=== PATIENT | male | born 2000 | race Two or more races ===

== ENCOUNTER 2021-09-11 09:55 | Emergency (ER) | payer OTHER ==
[~2021-09-11] VITALS: Ht 180.3 cm; Wt 81.6 kg
[2021-09-11 10:08] VITALS: BP 128/76
[2021-09-11] MEDS ORDERED: TDAP [DIPH/PERTUSSIS/TET] 0.5 ML VIAL IM ONE ×2 (10:13→10:30)
--- NOTE | 2021-09-11 10:15 | NUR ---
AT BEDSIDE FOR WOUND EVAL.
--- NOTE | 2021-09-11 10:20 | NUR ---
Patient discharged to home in stable condition. Written and verbal after care instructions given. Patient verbalizes understanding of instruction.
== END 2021-09-11 10:20 | disposition home or self-care (01) ==
LOC: ER 10:05
DX: S61.512A Laceration without foreign body of left wrist, initial encounter (principal); W25.XXXA Contact with sharp glass, initial encounter; Y93.89 Activity, other specified; Y92.89 Other specified places as the place of occurrence of the external cause; Y99.0 Civilian activity done for income or pay
CPT/HCPCS: 90715